=== PATIENT | male | born 1985 | race Hispanic/Latino ===

== ENCOUNTER 2021-08-26 02:42 | Emergency (ER) | payer SELFPAY ==
[~2021-08-26] VITALS: Ht 172.7 cm; Wt 81.6 kg
[2021-08-26] MEDS ORDERED: KETOROLAC TROMETHAMINE 30 MG/ML VIAL IV STA (02:44)
[2021-08-26] MEDS ORDERED: ASPIRIN 81 MG CHEW TAB PO ONE (02:45)
[2021-08-26 03:14] LABS: BASOPHILS # (AUTO) 0.1 (0.0-0.1); BASOPHILS % 0.9 % (0.0-1.0); EOSINOPHILS # (AUTO) 0.2 (0.0-0.4); EOSINOPHILS % 2.2 % (0.0-6.0); HEMATOCRIT 47.9 % (38.2-49.6); HEMOGLOBIN 15.8 g/dL (14.0-18.0); LYMPHOCYTES # (AUTO) 2.1 (1.0-3.2); MEAN CORPUSCULAR HEMOGLOBIN 29.9 pg (28-32); MEAN CORPUSCULAR VOLUME 90.5 fL (81-99); MONOCYTES # (AUTO) 0.7 (0.2-0.8); MONOCYTES % 10.3 % (4.4-11.3); NEUTROPHILS # (AUTO) 3.8 (2.1-6.9); NEUTROPHILS % 55.2 % (38.7-80.0); PLATELET COUNT 251 x10e3/uL (140-360); RED BLOOD COUNT 5.29 x10e6/uL (4.3-5.7); RED CELL DISTRIBUTION WIDTH 12.6 % (11.7-14.4)
[2021-08-26 03:28] LABS: AMPHETAMINES SCREEN,URINE NEGATIVE (NEGATIVE); BENZODIAZEPINES SCREEN,URINE NEGATIVE (NEGATIVE); PHENCYCLIDINE SCREEN,URINE NEGATIVE (NEGATIVE)
[2021-08-26 03:33] LABS: ALANINE AMINOTRANSFERASE 44 IU/L (0-55); ALBUMIN 4.4 g/dL (3.5-5.0); ALBUMIN/GLOBULIN RATIO 1.3 (0.8-2.0); ALKALINE PHOSPHATASE 84 IU/L (40-150); ANION GAP 12.5 mmol/L (8-16); BLOOD UREA NITROGEN 12 mg/dL (7-26); BUN/CREATININE RATIO 11 (6-25); CALCIUM 8.9 mg/dL (8.4-10.2); CARBON DIOXIDE 26 mmol/L (22-29); CHLORIDE 106 mmol/L (98-107); CREATINE KINASE 312 IU/L (30-200); CREATININE, SERUM 1.06 mg/dL (0.72-1.25); EST GLOMERULAR FILTRATION RATE 80 ML/MIN (60-); GLUCOSE 116 mg/dL (74-118); POTASSIUM 3.5 mmol/L (3.5-5.1); SODIUM 141 mmol/L (136-145)
[2021-08-26 03:48] LABS: LIPASE 81 U/L (8-78)
[2021-08-26 04:21] VITALS: BP 129/77
== END 2021-08-26 04:20 | disposition home or self-care (01) ==
LOC: ER 02:46
DX: R00.2 Palpitations (principal); R07.89 Other chest pain
CPT/HCPCS: 36415; 71045; 80053; 80307; 80320; 82550; 82553; 83690; 83880; 84484; 85025; 85379; 93005; 99284; J1885